=== PATIENT | male | born 1970 | race Caucasian/White ===

== ENCOUNTER 2022-06-22 16:20 | Observation (INO) | payer BC, OTHER ==
[~2022-06-22] VITALS: Ht 180.3 cm; Wt 123.4 kg
[2022-06-22] MEDS ORDERED: LACTATED RINGER'S 500 ML IV ONE (17:30)
[2022-06-22 17:41] LABS: ALBUMIN/GLOBULIN RATIO 1.1 (0.8-2.0); ANION GAP 18.2 mmol/L (8-16); BASOPHILS % 0.4 % (0.0-1.0); CALCIUM 9.2 mg/dL (8.4-10.2); CREATININE, SERUM 1.14 mg/dL (0.72-1.25); EOSINOPHILS # (AUTO) 0.1 (0.0-0.4); HEMATOCRIT 49.8 % (38.2-49.6); HEMOGLOBIN 15.9 g/dL (14.0-18.0); LYMPHOCYTES # (AUTO) 2.4 (1.0-3.2); LYMPHOCYTES % 23.9 % (18.0-39.1); MEAN CORPUSCULAR HEMOGLOBIN 30.3 pg (28-32); MEAN CORPUSCULAR HGB CONC 31.9 g/dL (31-35); MEAN CORPUSCULAR VOLUME 94.9 fL (81-99); MONOCYTES # (AUTO) 0.9 (0.2-0.8); MONOCYTES % 9.3 % (4.4-11.3); NEUTROPHILS # (AUTO) 6.4 (2.1-6.9); NEUTROPHILS % 64.6 % (38.7-80.0); PLATELET COUNT 322 x10e3/uL (140-360); POTASSIUM 3.2 mmol/L (3.5-5.1); RED BLOOD COUNT 5.25 x10e6/uL (4.3-5.7); RED CELL DISTRIBUTION WIDTH 13.2 % (11.7-14.4)
[2022-06-22] MEDS ORDERED: FUROSEMIDE INJ 10 MG/ML 4 ML VIAL IV ONE (19:45)
[2022-06-22] MEDS ORDERED: POTASSIUM CHLORIDE 20 MEQ TAB CR PO STA (19:50)
[2022-06-22] MEDS ORDERED: CARVEDILOL 3.125 MG TAB PO SCH (20:00)
[2022-06-22] MEDS: INSULIN LISPRO 100 UNIT/1 ML 3ML VIAL SQ SCH (21:00)
[2022-06-22] MEDS: RIVAROXABAN 20 MG TABLET PO SCH (21:20)
[2022-06-22] MEDS: METFORMIN HCL 500 MG TAB CR PO SCH (21:20)
[2022-06-23] VITALS (10 sets, daily range): BP systolic 92–132; BP diastolic 78–103
[2022-06-23] MEDS ORDERED: GLIPIZIDE5 MG PO (03:59)
[2022-06-23] MEDS ORDERED: METOPROLOL SUCC25 MG PO (03:59)
[2022-06-23] MEDS ORDERED: ENTRESTO 97 MG1 EACH PO (03:59)
[2022-06-23] MEDS ORDERED: ANDROGEL75 G1 (03:59)
[2022-06-23] MEDS ORDERED: PRAVASTATIN SOD40 MG PO (03:59)
[2022-06-23] MEDS ORDERED: SPIRONOLACTONE25 MG PO (03:59)
[2022-06-23] MEDS ORDERED: EMPAGLIFLOZIN PO (03:59)
[2022-06-23] MEDS ORDERED: XARELTO20 MG PO (03:59)
[2022-06-23] MEDS ORDERED: BUMETANIDE1 MG PO (03:59)
[2022-06-23] MEDS ORDERED: METFORMIN HCL500 MG PO (03:59)
[2022-06-23 06:59] LABS: BASOPHILS # (AUTO) 0.1 (0.0-0.1); BASOPHILS % 0.5 % (0.0-1.0); EOSINOPHILS # (AUTO) 0.1 (0.0-0.4); EOSINOPHILS % 1.1 % (0.0-6.0); HEMOGLOBIN 14.8 g/dL (14.0-18.0); LYMPHOCYTES # (AUTO) 2.3 (1.0-3.2); MEAN CORPUSCULAR HEMOGLOBIN 30.3 pg (28-32); MEAN CORPUSCULAR HGB CONC 33.6 g/dL (31-35); MONOCYTES # (AUTO) 0.9 (0.2-0.8); MONOCYTES % 8.6 % (4.4-11.3); NEUTROPHILS # (AUTO) 7.5 (2.1-6.9); NEUTROPHILS % 68.2 % (38.7-80.0); PLATELET COUNT 284 x10e3/uL (140-360); RED BLOOD COUNT 4.89 x10e6/uL (4.3-5.7); RED CELL DISTRIBUTION WIDTH 13.7 % (11.7-14.4)
[2022-06-23] MEDS: INSULIN LISPRO 100 UNIT/1 ML 3ML VIAL SQ SCH ×4 (07:30→20:36)
[2022-06-23 07:32] LABS: ANION GAP 18.4 mmol/L (8-16); CALCIUM 9.4 mg/dL (8.4-10.2); CREATININE, SERUM 1.13 mg/dL (0.72-1.25); POTASSIUM 3.4 mmol/L (3.5-5.1)
[2022-06-23 08:09] LABS: CHOL/HDL RATIO 6.9 (3.9-4.7)
[2022-06-23 08:28] LABS: THYROID STIMULATING HORMONE 1.481 uIU/mL (0.350-4.940)
[2022-06-23] MEDS: METFORMIN HCL 500 MG TAB CR PO SCH ×2 (08:40→16:31)
[2022-06-23] MEDS: GLIPIZIDE 5 MG TAB ER PO SCH (08:40)
[2022-06-23] MEDS: SPIRONOLACTONE 25 MG TAB PO SCH (08:41)
[2022-06-23] MEDS ORDERED: POTASSIUM CHLORIDE 20 MEQ TAB CR PO ONE (09:00)
[2022-06-23] MEDS ORDERED: SACUBITRIL/VALSARTAN 1 EACH TABLET PO SCH (09:00)
[2022-06-23] MEDS ORDERED: CARVEDILOL 12.5 MG TAB PO SCH (09:00)
[2022-06-23] MEDS ORDERED: FUROSEMIDE INJ 10 MG/ML 4 ML VIAL IV SCH (09:00)
[2022-06-23] MEDS ORDERED: TRAZODONE HCL 50 MG TAB PO PRN (11:45)
[2022-06-23] MEDS ORDERED: FUROSEMIDE INJ 100 MG in SODIUM CHLORIDE 0.9% 90 ML IV SCH ×2 (12:00→13:00)
[2022-06-23] MEDS: RIVAROXABAN 20 MG TABLET PO SCH (16:31)
[2022-06-23] MEDS ORDERED: ALPRAZOLAM 0.25 MG TAB PO PRN (20:30)
[2022-06-23] MEDS ORDERED: PRAVASTATIN 20 MG TAB PO SCH (21:00)
[2022-06-24 00:51] VITALS: BP 107/68
[2022-06-24 04:00] VITALS: BP 91/56
[2022-06-24] MEDS: INSULIN LISPRO 100 UNIT/1 ML 3ML VIAL SQ SCH (07:30)
[2022-06-24] MEDS: GLIPIZIDE 5 MG TAB ER PO SCH (08:00)
[2022-06-24 08:12] VITALS: BP 116/89
[2022-06-24] MEDS ORDERED: SACUBITRIL/VALSARTAN 1 EACH TABLET PO SCH (09:00)
[2022-06-24] MEDS ORDERED: FUROSEMIDE INJ 10 MG/ML 4 ML VIAL IV SCH (09:00)
[2022-06-24] MEDS: METFORMIN HCL 500 MG TAB CR PO SCH (09:10)
[2022-06-24] MEDS: SPIRONOLACTONE 25 MG TAB PO SCH (09:11)
[2022-06-24 10:25] VITALS: BP 116/89
[2022-06-24] MEDS ORDERED: XANAX0.25 MG PO (15:05)
== END 2022-06-24 10:45 | disposition home or self-care (01) ==
LOC: ER 16:27 → ERHOLD 18:06 → MED/SURG 06-23 01:40
PROVIDERS: ADMIT Internal Medicine; ATTEND Internal Medicine
DX: I11.0 Hypertensive heart disease with heart failure (principal); I50.41 Acute combined systolic (congestive) and diastolic (congestive) heart failure; I48.0 Paroxysmal atrial fibrillation; E87.6 Hypokalemia; I25.5 Ischemic cardiomyopathy; E11.9 Type 2 diabetes mellitus without complications; E78.00 Pure hypercholesterolemia, unspecified; Z20.822 Contact with and (suspected) exposure to COVID-19; Z79.02 Long term (current) use of antithrombotics/antiplatelets; Z79.84 Long term (current) use of oral hypoglycemic drugs; Z79.899 Other long term (current) drug therapy; Z86.718 Personal history of other venous thrombosis and embolism; Z82.49 Family history of ischemic heart disease and other diseases of the circulatory system
CPT/HCPCS: 36415 ×2; 71045; 80048; 80053; 80061; 82948 ×2; 83036; 83735; 83880 ×2; 84443; 84484; 85025 ×2; 93005; 93306; 94799 ×2; 99284; G0378 ×3; J1940 ×4; J7050; J7121; U0002